=== PATIENT | male | born 1940 | race Caucasian/White ===

== ENCOUNTER 2017-02-03 06:02 | Inpatient (IN) ==
[2017-01-21 12:07] LABS: Basophils # 0.1 10*3/uL (0.0-0.2); Basophils % 0.6 % (0.0-0.8); Eosinophils # 0.4 10*3/uL (0.0-0.87); Eosinophils % 4.8 % (0.00-10.9); Hematocrit 42.7 VOL% (42.0-52.0); Immature Granulocytes % 0.6 %; Immature Granulocytes Absolute 0.05 #; Lymphocytes # 2.2 10*3/uL (1.4-4.0); Lymphocytes % 25.6 % (21.2-54.2); Mean Corpuscular HGB Conc 35.1 GM/DL (32-36); Mean Corpuscular Hemoglobin 33 PG (27-34); Mean Corpuscular Volume 92.8 FL (87-102); Mean Platelet Volume 9.7 FL (9.6-12.0); Monocytes # 0.9 10*3/uL (0.11-0.8); Monocytes % 10.8 % (1.7-12.7); Neutrophils # 4.9 10*3/uL (1.4-7.4); Neutrophils % 57.6 % (38.7-73.9); Platelet Count 205 T/CUMM (130-400); Red Cell Distribution Width 13.5 % (9.3-17.3); White Blood Count 8.5 T/CUMM (4-12)
--- NOTE | 2017-01-21 12:21 | EKG Report ---
Stationary ECG Study [facility] Test Date: 01/21/2017 12:22:40 PM Pat Name: MUKESH FELICIANO Department: Room: Gender: M Surgical Physician Assistant: VAL MAGUIRE : 1940 Requested by: Vernon Abdul Order Number: [id number] Reading MD: DONNA ARTEAGA Intervals [place] Rate: 52 P: 31 MD: 239 QRS: 63 QRSD: 94 T: 39 QT: 404 QTc: 383 Interpretive Statements SINUS BRADYCARDIA WITH PROLONGED MD INTERVAL Electronically Signed On 01-21-17 17:00:10 CDT by DONNA ARTEAGA [email or web address]
[2017-01-21 12:41] LABS: Albumin 4.1 G/DL (3.4-5.0); Bilirubin,Total 0.6 MG/DL (0.2-1.0); Calcium 9.3 MG/DL (8.5-10.1); Osmolality,Calculated 280.4 MOS/KG (273-304); Potassium 5.3 MMOL/L (3.5-5.1); Total Protein 6.8 G/DL (6.4-8.3)
[2017-02-03] MEDS ORDERED: FAMOTIDINE 20 MG TABLET PO ONE (06:14)
[2017-02-03] MEDS ORDERED: LORazepam 1 MG TABLET PO ONE (06:14)
[2017-02-03] MEDS ORDERED: TISSUE ADHESIVE 1 EACH APPLICATOR TOP ONE (06:27)
[2017-02-03] MEDS ORDERED: HEPARIN 5,000 UNIT/1 ML VIAL ONE (06:27)
[2017-02-03] MEDS ORDERED: THROMBIN TOPICAL (RECOMBINANT) 5,000 UNIT VIAL TOP ONE (06:28)
[2017-02-03] MEDS ORDERED: VANCOMYCIN 500 MG VIAL ONE (06:28)
[2017-02-03] MEDS ORDERED: SODIUM CHLORIDE 0.9% 100 ML IV ONE (06:31)
[2017-02-03] MEDS ORDERED: ceFAZolin 1,000 MG VIAL ONE (06:31)
[2017-02-03] MEDS ORDERED: FAMOTIDINE 20 MG TABLET ONE (06:31)
[2017-02-03] MEDS ORDERED: LORazepam 1 MG TABLET ONE (06:31)
[2017-02-03 06:36] LABS: Basophils # 0.1 10*3/uL (0.0-0.2); Basophils % 0.9 % (0.0-0.8); Eosinophils # 0.5 10*3/uL (0.0-0.87); Hematocrit 39.4 VOL% (42.0-52.0); Hemoglobin 14.1 GM/DL (14.0-18.0); Immature Granulocytes % 0.5 %; Immature Granulocytes Absolute 0.04 #; Lymphocytes # 2.1 10*3/uL (1.4-4.0); Lymphocytes % 27.1 % (21.2-54.2); Mean Corpuscular HGB Conc 35.8 GM/DL (32-36); Mean Corpuscular Hemoglobin 33 PG (27-34); Mean Corpuscular Volume 92.7 FL (87-102); Mean Platelet Volume 9.9 FL (9.6-12.0); Monocytes # 0.9 10*3/uL (0.11-0.8); Monocytes % 12.1 % (1.7-12.7); Neutrophils # 4.1 10*3/uL (1.4-7.4); Neutrophils % 52.4 % (38.7-73.9); Platelet Count 187 T/CUMM (130-400); Red Blood Count 4.25 MC/CUMM (3.8-5.5); Red Cell Distribution Width 13.3 % (9.3-17.3); White Blood Count 7.8 T/CUMM (4-12)
[2017-02-03] MEDS: LACTATED RINGERS 1,000 ML IV SCH ×2 (06:40→16:29)
[2017-02-03 06:45] LABS: PT Patient Result 10.4 SECS; Partial Thromboplastin Time 26.3 SECS (0-40)
[2017-02-03] MEDS ORDERED: HEPARIN/NACL 0.9% 2 UNITS/ML 3,000 ML IV ONE (07:34)
--- NOTE | 2017-02-03 07:50 | History and Physical Update ---
History and Physical Update - History and Physical H&P was reviewed, the patient examined and there: are no changes in the patients condition since last H&P was completed.
[2017-02-03 08:48] LABS: Apearance,Urine CLEAR (Clear); Bilirubin,Urine Negative (Negative); Blood, Urine Negative (Negative); Glucose,Urine (UA) Negative (Negative); Ketones,Urine Negative (Negative); Nitrite,Urine Negative (Negative); Protein,Urine Negative; Urine Color Colorless (Yellow); Urine Specific Gravity 1.003 (1.001-1.035); Urine Urobilinogen < 2.0 EU/DL (0.2-1.0); WBC,Urine <1 /HPF (0-6)
--- NOTE | 2017-02-03 09:59 | Post Interventional Procedure ---
Pre-op diagnosis: AAA Post-op diagnosis: same Procedure: EVAR AAA Contrast: Omni 350, 110 cc Flouroscopy: 11.1 min Radiologist: Kraig Correa Anesthesia: GETA Specimens: none sent Estimated blood loss: minimal (100 cc) Complications: none Condition: stable Description/Findings: dopplerable bilat PT pulses after closure Grafts or Implants: see radiology dictation Assessment and Plan - Time spent with patient Time spent with patient: Greater than 30 minutes (1) Abdominal aortic aneurysm Status: Acute Assessment and plan: A: AAA treated with EVAR P: Tx to floor, ambulate when ready, adv diet Current Visit: Yes
[2017-02-03] MEDS ORDERED: ONDANSETRON 4 MG/2 ML VIAL IV PRN ×2 (10:08→10:33)
[2017-02-03] MEDS ORDERED: oxyCODONE/ACETAMINOPHEN 5-325 MG TABLET PO PRN (10:08)
[2017-02-03] MEDS ORDERED: HYDROmorphone 2 MG/1 ML VIAL IV PRN (10:08)
[2017-02-03] MEDS ORDERED: HYDROmorphone 2 MG/1 ML VIAL ONE (10:14)
[2017-02-03] MEDS ORDERED: ONDANSETRON 4 MG/2 ML VIAL ONE (10:14)
[2017-02-03] MEDS: HYDROmorphone 2 MG/1 ML VIAL IV PRN ×2 (10:15→10:23)
[2017-02-03] MEDS ORDERED: BILBERRY FRUIT EXTRACT PO SCH (10:15)
[2017-02-03] MEDS ORDERED: PHENYLEPHRINE DRIP 20 MG/250 ML PREMIX IV ONE (10:39)
[2017-02-03] MEDS ORDERED: PROPOFOL 200 MG/20 ML VIAL IV ONE (10:39)
[2017-02-03] MEDS ORDERED: MIDAZOLAM 2 MG/2 ML VIAL ONE (10:40)
[2017-02-03] MEDS ORDERED: SEVOFLURANE 1 UNIT/15 MINUTE INH ONE (10:40)
[2017-02-03] MEDS ORDERED: fentaNYL 100 MCG/2 ML VIAL ONE (10:40)
[2017-02-03] MEDS ORDERED: NITROGLYCERIN DRIP 50 MG/250 ML BOTTLE IV ONE (10:41)
[2017-02-03] MEDS ORDERED: ROCURONIUM 100 MG/10 ML VIAL IV ONE (10:41)
[2017-02-03] MEDS ORDERED: NEOSTIGMINE 10 MG/10 ML VIAL ONE (10:41)
[2017-02-03] MEDS ORDERED: PROTAMINE SULFATE 50 MG/5 ML VIAL IV ONE (10:41)
[2017-02-03] MEDS ORDERED: LACTATED RINGERS 1,000 ML IV SCH (11:00)
[2017-02-03 13:13] LABS: Hematocrit 37.7 VOL% (42.0-52.0)
[2017-02-03 13:37] LABS: Calcium 7.8 MG/DL (8.5-10.1); Osmolality,Calculated 284.1 MOS/KG (273-304); Potassium 4.6 MMOL/L (3.5-5.1)
--- NOTE | 2017-02-03 16:32 | Event Note ---
Mr. Mortensen is awake alert doing well groins are good with no hematomas feet feel comfortable we will get the [place] out and have regular food store around room KUB and lab in the morning probably home tomorrow he continues this good, postoperative course
[2017-02-03] MEDS ORDERED: LISINOPRIL 10 MG TABLET PO SCH (17:00)
[2017-02-03] MEDS: CARISOPRODOL 350 MG TABLET PO SCH (20:51)
[2017-02-03] MEDS: MULTIVITAMIN (OCUVITE) TABLET PO SCH (20:51)
[2017-02-03] MEDS ORDERED: diphenhydrAMINE CAP 25 MG CAPSULE PO SCH (21:00)
[2017-02-04 05:23] LABS: Basophils # 0.1 10*3/uL (0.0-0.2); Basophils % 0.4 % (0.0-0.8); Eosinophils # 0.3 10*3/uL (0.0-0.87); Eosinophils % 1.5 % (0.00-10.9); Hematocrit 35.2 VOL% (42.0-52.0); Hemoglobin 12.3 GM/DL (14.0-18.0); Immature Granulocytes % 0.5 %; Immature Granulocytes Absolute 0.08 #; Lymphocytes # 1.4 10*3/uL (1.4-4.0); Mean Corpuscular HGB Conc 34.9 GM/DL (32-36); Mean Corpuscular Hemoglobin 32 PG (27-34); Mean Corpuscular Volume 92.6 FL (87-102); Mean Platelet Volume 10.3 FL (9.6-12.0); Monocytes # 1.6 10*3/uL (0.11-0.8); Monocytes % 9.5 % (1.7-12.7); Neutrophils # 13.5 10*3/uL (1.4-7.4); Neutrophils % 80.1 % (38.7-73.9); Platelet Count 144 T/CUMM (130-400); Red Cell Distribution Width 13.2 % (9.3-17.3); White Blood Count 16.8 T/CUMM (4-12)
[2017-02-04 05:36] LABS: Calcium 7.9 MG/DL (8.5-10.1); Osmolality,Calculated 278.7 MOS/KG (273-304); Potassium 4.6 MMOL/L (3.5-5.1)
--- NOTE | 2017-02-04 07:49 | Interventional Radiology Rpt ---
[id number], US guide vascular access, US guide vascular access Indication: Abdominal aortic aneurysm. Indication: Abdominal aortic aneurysm. ENDOVASCULAR REPAIR ABDOMINAL AORTIC ANEURYSM Description: A formal timeout performed. Patient was placed under general endotracheal anesthesia. Heparin 5000 units was administered. The left common femoral artery was evaluated with ultrasound showing moderate plaque deposition posteriorly. Under sonographic guidance, a micropuncture needle was advanced into the left common femoral artery. Captured sonographic image documents needle position. Needle was exchanged over a wire for a sheath. A Perclose device was advanced and partially deployed. A second Perclose device was advanced and partially deployed, with a resultant misfire of the device. A third Perclose device was then advanced and partially deployed, with the knot external to the patient. The knot was then seated gently. A 12 [place]an sheath was then advanced over the wire for hemostasis. The right common femoral artery was studied with ultrasound showing moderate plaque deposition posteriorly. Under sonographic guidance, a micropuncture needle was advanced into the right common femoral artery. A captured sonographic image documents needle position. The needle was exchanged over wire for a sheath. 2 Perclose devices were advanced sequentially, each partially deployed, successfully. After removing the second Perclose device, a 6 [place]an sheath was positioned. From the left groin, flush catheter was advanced into the suprarenal abdominal aorta. From the right groin, over a Pierce wire, a bifurcated Endurant 2 stent graft device was advanced, 32 x 16 x 166 mm. An abdominal aortogram was performed confirming the origin of the lowest accessory right renal artery. After adjusting the position of the primary device, it was deployed, and its position adjusted slightly. A repeat arteriogram was then performed confirming the renal artery ostium. The suprarenal fixation component and contralateral gate was then deployed. The flush catheter was removed over a Glidewire. Glidewire was then withdrawn and, with a Tegtmeyer catheter, the contralateral gate directly accessed. The measuring pigtail catheter was then advanced from the left groin into the lumen of the primary device and spun to confirm intraluminal positioning. ACT of 200 seconds measured. Heparin 2000 units administered. Through the left groin sheath, a retrograde right pelvis arteriogram was performed in an JAP[place]ESE projection to confirm the position of the left hypogastric artery. From the left groin, a 16 x 16 x 124 mm Endurant 2 contralateral device was advanced and deployed from the flow divider marker to the left common iliac artery bifurcation. The ipsilateral limb of the main body was then deployed in its entirety. Through the right groin sheath, a retrograde right pelvic arteriogram was performed to confirm the patency of the ostium of the right hypogastric artery. Sequential angioplasty was then performed from the inflow portion of the main body device, through the flow divider, and to the outflow portion of both iliac limbs. From the right groin, a flush catheter was then advanced into the suprarenal abdominal aorta. An aortogram was performed demonstrating a type II endoleak off of a moderate size right lumbar artery, approximately L2-3, and widely patent stent graft device. Both hypogastric arteries are widely patent as well. Both sheath were left in place. The flush catheter was removed. ACT of 239 seconds was measured. Protamine 25 mg was given. The 2 right groin Perclose devices were then engaged as the 16 [place]an sheath was removed. After removing the sheath, both sutures were secured and locked in place. This achieved almost complete hemostasis requiring only mild right groin pressure. The left first 2 Perclose devices were then engaged as the 12 [place]an sheath was removed. After the sheath was completely out, both sutures were further anchored and the medial suture successfully locked in place. The lateral suture would not locked, and the suture broke near the skin. This suture was easily removed. The third Perclose device in the left groin was then engaged and suture locked in place. After completing the deployment of the first and third left Perclose devices, sutures were cut. There was moderate bleeding at the puncture site which responded to 10 minutes of manual compression without difficulty. Bilateral posterior tibialis pulses were dopplerable at the feet. Patient was awakened and transferred to recovery in stable condition. Medications: GETA. Heparin 7000 units, protamine 25 mg. Estimated blood loss: Minimal, 100 cc. Contrast: Omnipaque 350, 110 cc. Fluoroscopy time: 11.1 minutes. Impression: Endovascular repair abdominal aortic aneurysm as described above. PROCEDURE INTERPRETED AT [facility] DEPARTMENT OF RADIOLOGY Final Report Signed by: Kraig Correa M.D.
--- NOTE | 2017-02-04 08:06 | Anesthesia Post-Op ---
Anesthesia Post OP - Post Ansesthetic Evaluation Patient seen in post op: Yes Resp: within normal limits CV: within normal limits Mental: within normal limits Temp: within normal limits Ybjt-[id number]-Otpsmqkvy: within normal limits Nausea and Vomiting: within normal limits Pain: within normal limits
[2017-02-04] MEDS ORDERED: GREEN TEA LEAF EXTRACT 250 MG PO SCH (09:00)
[2017-02-04] MEDS ORDERED: GLUCOSAMINE SULFATE DIPOT CHLR 1000 MG PO SCH (09:00)
[2017-02-04] MEDS ORDERED: OMEGA 3 ACID ETHYL ESTERS 1 GM CAPSULE PO SCH (09:00)
[2017-02-04] MEDS ORDERED: PANTOPRAZOLE 40 MG TABLET PO SCH (09:00)
[2017-02-04] MEDS ORDERED: ASPIRIN EC 81 MG TABLET PO SCH (09:00)
[2017-02-04] MEDS ORDERED: ATORVASTATIN 40 MG TABLET PO SCH (09:00)
[2017-02-04] MEDS: LACTATED RINGERS 1,000 ML IV SCH (09:33)
--- NOTE | 2017-02-04 09:33 | Event Note ---
Postop day 1 from endovascular repair of abdominal aortic aneurysm. Patient is without complaints, ambulating and tolerating p.o. intake adequately. Anticipate discharge later today. Both feet are warm and dry. Groins are unremarkable. Follow-up CT in one month.
[2017-02-04] MEDS: MULTIVITAMIN (OCUVITE) TABLET PO SCH (09:34)
[2017-02-04] MEDS: CARISOPRODOL 350 MG TABLET PO SCH (09:34)
--- NOTE | 2017-02-04 09:39 | Discharge Summary ---
Hospital Course - Hospital Course Hospital Course: Carlo Mortensen was admitted on 02/03/2017 with moderate abdominal aortic iliac aneurysm. He underwent successful endovascular repair of the aneurysm and is doing well this morning he is up and about with no hematomas of the groins his blood count has dropped a bit with hematocrit now 35 white blood count is elevated but this is very common occurrence after the endovascular repair of the aneurysms. His creatinine is up from 1-1.6 which also is not surprising. He is tolerating a diet ambulatory vital signs look reasonable I will plan for him to go home this afternoon if the creatinine is stabilizing. I am checking this creatinine at 3 PM and will let him be discharged if indeed it is stabilized. Discharge Plan - Discharge Data Disposition: Disch To Home/Self Care Condition at Discharge: Stable Discharge Diet: advance to your usual diet Activity: resume usual activities as tolerated Hygiene: may shower Weight Bearing at Discharge: full weight bearing Driving: not until seen by doctor Contact your physician if you experience:: fever over 101, Redness or swelling - Discharge Medications Continue Carisoprodol [Soma] 350 mg PO BID Multivit-Min/FA/Lutein/Zeaxant [Icaps Mv Tablet] 1 each PO BID Lisinopril [Prinivil] 10 mg PO DAILY W/SUPPER Phoenix-3 Fatty Acids [Phoenix-3 Chew Tab] 100 mg PO DAILY Atorvastatin [Lipitor] 40 mg PO DAILY Bilberry Fruit Extract [Bilberry] 375 mg PO DIRECTED diphenhydrAMINE CAP [Benadryl Cap] 25 mg PO BEDTIME Glucosamine Sulfate Dipot Chlr [Glucosamine] 1,000 mg PO DAILY HYDROcodone/ACETAMIN 7.5-325 [Strang 7.5-325] 1 tablet PO Q6H PRN PRN Reason: Pain Green Tea [place] Extract [Green Tea] 250 mg PO DAILY Omeprazole [Prilosec] 20 mg PO DAILY Aspirin EC Tab 81 mg PO DAILY - Follow Up or Referral Follow Up: Vernon Abdul MD [Physician] - 1 Week - Forms/Instructions Exam - Constitutional Vitals: Period Temp Pulse Resp BP Sys/Martinez Pulse Ox Last 24 Hr 96.5 F-99.7 F 55-79 14-20 101-127/51-85 92-98 Discharge Results Procedures and tests throughout hospitalization: Pending Orders 02/04/17 04:00 XR KUB IN AM 02/04/17 15:34 Creatinine Routine Labs on day of discharge: Labs from last 24 hours 02/04/17 02/04/17 02/03/17 04:41 04:41 12:44 WBC 16.8 H D RBC 3.80 Hgb 12.3 L 13.0 L Hct 35.2 L 37.7 L MCV 92.6 MCH 32 MCHC 34.9 RDW 13.2 Plt Count 144 D MPV 10.3 Neut % (Auto) 80.1 H Lymph % (Auto) 8.0 L [place] % (Auto) 9.5 Eos % (Auto) 1.5 Baso % (Auto) 0.4 Neut # (Auto) 13.5 H Lymph # (Auto) 1.4 [place] # (Auto) 1.6 H Eos # (Auto) 0.3 Baso # (Auto) 0.1 Immature Gran % 0.5 Nucleated RBC % 0.0 Immature Gran # 0.08 Nucleated RBCs # 0.00 Immature Plt Fraction 0.0 Sodium 138 Potassium 4.6 Chloride 106 Carbon Dioxide 23 Anion Gap 13.6 BUN 15 Creatinine 1.60 H GFR Calculation 50 BUN/Creatinine Ratio 9.00 Glucose 160 H Calculated Osmolality 278.7 Calcium 7.9 L 02/03/17 12:44 WBC RBC Hgb Hct MCV MCH MCHC RDW Plt Count MPV Neut % (Auto) Lymph % (Auto) [place] % (Auto) Eos % (Auto) Baso % (Auto) Neut # (Auto) Lymph # (Auto) [place] # (Auto) Eos # (Auto) Baso # (Auto) Immature Gran % Nucleated RBC % Immature Gran # Nucleated RBCs # Immature Plt Fraction Sodium 142 Potassium 4.6 Chloride 111 H Carbon Dioxide 29 Anion Gap 6.6 BUN 12 Creatinine 1.00 GFR Calculation 88 BUN/Creatinine Ratio 12.00 Glucose 128 H Calculated Osmolality 284.1 Calcium 7.8 L DS: Provider Date of admission: 02/03/17 06:02 Primary care physician: Vito Couch, Attending physician on admission: Vernon Abdul MD Discharging clinician: Vernon Abdul MD
--- NOTE | 2017-02-04 09:46 | XRay Report ---
XR KUB Indication: Postop endograft for AAA. 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 No small bowel dilatation. Normal amount of stool and gas is shown the colon. There is some retained IV contrast in the bladder. Impression: Status post EVAR AAA. Retained contrast in the urinary bladder. PROCEDURE INTERPRETED AT [facility] DEPARTMENT OF RADIOLOGY Final Report Signed by: Kraig Correa M.D.
[2017-02-04 16:44] VITALS: BP 113/55
== END 2017-02-04 16:42 | disposition home or self-care (01) | DRG 269 ==
LOC: N.SDSINP 06:02 → N.4E 12:27
PROVIDERS: ADMIT Surgery; ATTEND Surgery
PROC: IRERAAA (2017-02-03 07:50)

== ENCOUNTER 2017-12-04 09:36 | Inpatient (IN) ==
[2017-12-10 07:01] VITALS: BP 118/68
== END 2017-12-10 10:13 | DRG 493 ==
LOC: N.OR 09:36 → N.SDSINP 09:38 → N.3E 13:51
PROVIDERS: ADMIT Orthopaedic Surgery; ATTEND Orthopaedic Surgery

== ENCOUNTER 2018-05-03 05:40 | Inpatient (IN) ==
[2018-05-03] MEDS ORDERED: ceFAZolin 2,000 MG in PREMIX 1 EACH IV ONE (06:30)
[2018-05-03] MEDS: LACTATED RINGERS 1,000 ML IV SCH ×2 (07:35→10:16)
[2018-05-03] MEDS ORDERED: PROMETHAZINE 25 MG/1 ML VIAL IM PRN (09:17)
[2018-05-03] MEDS ORDERED: ONDANSETRON 4 MG/2 ML VIAL IV PRN (09:17)
[2018-05-03] MEDS ORDERED: BISACODYL 10 MG SUPP RECTAL PRN (09:17)
[2018-05-03] MEDS ORDERED: LACTULOSE 20 GM/30 ML UDCUP PO PRN (09:17)
[2018-05-03] MEDS ORDERED: MAGNESIUM HYDROXIDE SUSP 30 ML UDCUP PO PRN (09:17)
[2018-05-03] MEDS ORDERED: diphenhydrAMINE CAP 25 MG CAPSULE PO PRN (09:21)
[2018-05-03] MEDS ORDERED: SEVOFLURANE 1 UNIT/15 MINUTE INH ONE (11:19)
[2018-05-03] MEDS ORDERED: PROPOFOL 200 MG/20 ML VIAL IV ONE (11:19)
[2018-05-03] MEDS ORDERED: LACTATED RINGERS 1,000 ML IV ONE (11:20)
[2018-05-03] MEDS ORDERED: ONDANSETRON 4 MG/2 ML VIAL ONE (11:20)
[2018-05-03] MEDS ORDERED: PHENYLEPHRINE 1 MG/10 ML SYRINGE IV ONE (11:20)
[2018-05-03] MEDS ORDERED: fentaNYL 100 MCG/2 ML VIAL ONE (11:20)
[2018-05-03] MEDS ORDERED: ePHEDrine 50 MG/ML AMP ONE (11:20)
[2018-05-03] MEDS: MORPHINE 4 MG/1 ML VIAL IV PRN ×3 (12:25→22:43)
[2018-05-03] MEDS: ceFAZolin 1,000 MG in SYRINGE 1 EACH IV SCH (16:50)
[2018-05-03] MEDS: GLIMEPIRIDE 4 MG TABLET PO SCH (16:50)
[2018-05-03] MEDS ORDERED: GLUCAGON 1 MG VIAL IM PRN (16:59)
[2018-05-03] MEDS ORDERED: DEXTROSE 50% 25 GM/50 ML VIAL IV PRN (16:59)
[2018-05-03] MEDS ORDERED: LISINOPRIL 10 MG TABLET PO SCH (17:00)
[2018-05-03 18:05] LABS: Basophils % 0.3 % (0.0-0.8); Eosinophils # 0.1 10*3/uL (0.0-0.87); Eosinophils % 0.8 % (0.00-10.9); Hematocrit 33.5 VOL% (42.0-52.0); Hemoglobin 11.3 GM/DL (14.0-18.0); Immature Granulocytes % 0.5 %; Immature Granulocytes Absolute 0.06 #; Lymphocytes # 1.4 10*3/uL (1.4-4.0); Lymphocytes % 11.1 % (21.2-54.2); Mean Corpuscular HGB Conc 33.7 GM/DL (32-36); Mean Corpuscular Hemoglobin 31 PG (27-34); Monocytes % 8.1 % (1.7-12.7); Neutrophils # 10.1 10*3/uL (1.4-7.4); Neutrophils % 79.2 % (38.7-73.9); Platelet Count 190 T/CUMM (130-400); Red Blood Count 3.68 MC/CUMM (3.8-5.5); Red Cell Distribution Width 13.6 % (9.3-17.3); White Blood Count 12.7 T/CUMM (4-12)
[2018-05-03 19:01] LABS: Albumin 3.2 G/DL (3.4-5.0); Bilirubin,Total 0.4 MG/DL (0.2-1.0); Calcium 8.3 MG/DL (8.5-10.1); Osmolality,Calculated 275.8 MOS/KG (273-304); Potassium 4.1 MMOL/L (3.5-5.1); Thyroid Stimulating Hormone 4.2 uIU/ml (0.358-3.74); Total Protein 6.2 G/DL (6.4-8.3)
[2018-05-03] MEDS ORDERED: DONEPEZIL 10 MG TABLET PO SCH (21:00)
[2018-05-03] MEDS ORDERED: ATORVASTATIN 40 MG TABLET PO SCH (21:00)
[2018-05-03] MEDS ORDERED: ASPIRIN EC 81 MG TABLET PO SCH (21:00)
[2018-05-03] MEDS ORDERED: GLUCOSAMINE 500 MG TABLET PO SCH (21:00)
[2018-05-03] MEDS: SULFAMETHOX/TRIMETHOPRIM 800-160 MG TABLET PO SCH (21:13)
[2018-05-03] MEDS: INSULIN REGULAR 100 UNIT/ML SUBCUT SCH (21:13)
[2018-05-04] MEDS: MORPHINE 4 MG/1 ML VIAL IV PRN (02:57)
[2018-05-04] MEDS: ceFAZolin 1,000 MG in SYRINGE 1 EACH IV SCH (04:33)
[2018-05-04 05:23] LABS: Basophils % 0.2 % (0.0-0.8); Eosinophils # 0.1 10*3/uL (0.0-0.87); Eosinophils % 1.3 % (0.00-10.9); Hematocrit 31.6 VOL% (42.0-52.0); Hemoglobin 10.6 GM/DL (14.0-18.0); Immature Granulocytes % 0.3 %; Immature Granulocytes Absolute 0.03 #; Lymphocytes # 1.1 10*3/uL (1.4-4.0); Lymphocytes % 11.6 % (21.2-54.2); Mean Corpuscular HGB Conc 33.5 GM/DL (32-36); Mean Corpuscular Hemoglobin 31 PG (27-34); Mean Corpuscular Volume 92.7 FL (87-102); Monocytes # 1.2 10*3/uL (0.11-0.8); Neutrophils # 6.6 10*3/uL (1.4-7.4); Neutrophils % 73.6 % (38.7-73.9); Platelet Count 161 T/CUMM (130-400); Red Blood Count 3.41 MC/CUMM (3.8-5.5); Red Cell Distribution Width 13.6 % (9.3-17.3)
[2018-05-04 05:42] LABS: Calcium 8.3 MG/DL (8.5-10.1); Osmolality,Calculated 272.8 MOS/KG (273-304); Potassium 4.7 MMOL/L (3.5-5.1)
[2018-05-04 07:32] VITALS: BP 110/66
[2018-05-04] MEDS ORDERED: metFORMIN 500 MG TABLET PO SCH (08:00)
[2018-05-04 08:40] LABS: Free T4 (Free Thyroxine) 1.14 NG/DL (0.76-1.46)
[2018-05-04] MEDS ORDERED: ALOE VERA PO SCH (09:00)
[2018-05-04] MEDS: SULFAMETHOX/TRIMETHOPRIM 800-160 MG TABLET PO SCH (09:29)
[2018-05-04] MEDS: GLIMEPIRIDE 4 MG TABLET PO SCH (09:29)
[2018-05-04] MEDS: INSULIN REGULAR 100 UNIT/ML SUBCUT SCH (09:30)
== END 2018-05-04 12:20 | disposition home health service (06) | DRG 494 ==
LOC: N.SDSINP 05:40 → N.OR 05:40 → N.3E 09:18
PROVIDERS: ADMIT Orthopaedic Surgery; ATTEND Orthopaedic Surgery

== ENCOUNTER 2019-11-28 15:58 | Inpatient (IN) ==
[2019-11-28] MEDS ORDERED: SODIUM CHLORIDE 0.9% 1,000 ML IV STA (16:35)
[2019-11-28 16:56] LABS: Basophils % 0.2 % (0.0-0.8); Hematocrit 44.3 VOL% (42.0-52.0); Hemoglobin 15.2 GM/DL (14.0-18.0); Immature Granulocytes % 0.4 %; Immature Granulocytes Absolute 0.02 #; Lymphocytes # 1.1 10*3/uL (1.4-4.0); Lymphocytes % 19.3 % (21.2-54.2); Mean Corpuscular HGB Conc 34.3 GM/DL (32-36); Mean Corpuscular Volume 92.1 FL (87-102); Mean Platelet Volume 9.6 FL (9.6-12.0); Monocytes % 16.5 % (1.7-12.7); Neutrophils % 63.6 % (38.7-73.9); Platelet Count 140 T/CUMM (130-400); Red Blood Count 4.81 MC/CUMM (3.8-5.5); Red Cell Distribution Width 12.7 % (9.3-17.3); White Blood Count 5.5 T/CUMM (4-12)
[2019-11-28 17:03] LABS: PT Patient Result 10.8 SECS (9.8-11.9)
[2019-11-28 17:22] LABS: Albumin 2.8 G/DL (3.4-5.0); Bilirubin,Total 0.6 MG/DL (0.2-1.0); Calcium 7.9 MG/DL (8.5-10.1); Ferritin 484.4 ng/ml (26-388); Osmolality,Calculated 262.1 MOS/KG (273-304); Total Protein 6.4 G/DL (6.4-8.3)
[2019-11-28] MEDS ORDERED: LEVOFLOXACIN INJ 500 MG in PREMIX 1 EACH IV STA (18:00)
[2019-11-28 19:01] LABS: Lymphocytes 26 % (20-55); Macrocytosis Slight; Segmented Neutrophils 65 % (50-85); Total Cells Counted 100
[2019-11-28 19:02] LABS: Hypochromasia Slight; Platelet Estimate Decreased
[2019-11-28 19:03] LABS: Reactive Lymphocytes Few
[2019-11-28] MEDS ORDERED: GLUCAGON 1 MG VIAL IM PRN ×2 (19:48)
[2019-11-28] MEDS ORDERED: ONDANSETRON 4 MG/2 ML VIAL IV PRN (19:48)
[2019-11-28] MEDS ORDERED: DEXTROSE 50% 25 GM/50 ML VIAL IV PRN ×2 (19:48)
[2019-11-28] MEDS: SODIUM CHLORIDE 0.9% 1,000 ML IV SCH (20:00)
[2019-11-28] MEDS: INSULIN LISPRO 100 UNIT/ML SUBCUT SCH (21:45)
[2019-11-28] MEDS: ENOXAPARIN 40 MG/0.4 ML SYRINGE SUBCUT SCH (21:45)
[2019-11-28] MEDS: ATORVASTATIN 40 MG TABLET PO SCH (21:45)
[2019-11-28] MEDS: ASPIRIN EC 81 MG TABLET PO SCH (21:45)
[2019-11-28] MEDS: DONEPEZIL 10 MG TABLET PO SCH (21:45)
[2019-11-29] MEDS: SODIUM CHLORIDE 0.9% 1,000 ML IV SCH (03:00)
[2019-11-29 05:42] LABS: Basophils % 0.1 % (0.0-0.8); Hematocrit 44.2 VOL% (42.0-52.0); Hemoglobin 15.1 GM/DL (14.0-18.0); Immature Granulocytes % 0.3 %; Immature Granulocytes Absolute 0.02 #; Lymphocytes # 1.1 10*3/uL (1.4-4.0); Lymphocytes % 16.2 % (21.2-54.2); Mean Corpuscular HGB Conc 34.2 GM/DL (32-36); Mean Corpuscular Volume 93.1 FL (87-102); Mean Platelet Volume 9.5 FL (9.6-12.0); Neutrophils % 69.4 % (38.7-73.9); Platelet Count 129 T/CUMM (130-400); Red Blood Count 4.75 MC/CUMM (3.8-5.5); Red Cell Distribution Width 12.6 % (9.3-17.3); White Blood Count 6.7 T/CUMM (4-12)
[2019-11-29 06:28] LABS: Osmolality,Calculated 262.9 MOS/KG (273-304); Risk Ratio 3.66; Thyroid Stimulating Hormone 2.04 uIU/ml (0.358-3.74)
[2019-11-29 06:29] LABS: Microcytosis Slight; Ovalocytes Slight; Platelet Estimate Adequate
[2019-11-29] MEDS: PANTOPRAZOLE 40 MG TABLET PO SCH (08:08)
[2019-11-29] MEDS: INSULIN LISPRO 100 UNIT/ML SUBCUT SCH ×4 (08:08→20:04)
[2019-11-29] MEDS: lisinopriL 10 MG TABLET PO SCH (17:05)
[2019-11-29] MEDS: ENOXAPARIN 40 MG/0.4 ML SYRINGE SUBCUT SCH (20:51)
[2019-11-29] MEDS: ATORVASTATIN 40 MG TABLET PO SCH (20:51)
[2019-11-29] MEDS: DONEPEZIL 10 MG TABLET PO SCH (20:51)
[2019-11-29] MEDS: ASPIRIN EC 81 MG TABLET PO SCH (20:51)
[2019-11-29] MEDS: ACETAMINOPHEN 325 MG TABLET PO PRN (20:52)
[2019-11-30] MEDS: ACETAMINOPHEN 325 MG TABLET PO PRN ×2 (00:18→20:44)
[2019-11-30 05:38] LABS: Apearance,Urine CLEAR (Clear); Bacteria,Urine Occasional /HPF (Few); Bilirubin,Urine Negative (Negative); Blood, Urine Small mg/dL (Negative); Glucose,Urine (UA) Negative (Negative); Ketones,Urine Negative (Negative); Mucus,Urine Occasional /LPF (Occasional); Nitrite,Urine Negative (Negative); Protein,Urine 100 MG/DL; RBC,Urine <1 /HPF (0-4); Squamous Epithelial Cell,Urine Occasional /HPF (0-10); Urine Color Yellow (Yellow); Urine Specific Gravity 1.016 (1.001-1.035); Urine Urobilinogen < 2.0 EU/DL (0.2-1.0); WBC,Urine 1 /HPF (0-6)
[2019-11-30 05:39] LABS: Calcium 7.8 MG/DL (8.5-10.1); Osmolality,Calculated 271.4 MOS/KG (273-304)
[2019-11-30] MEDS: INSULIN LISPRO 100 UNIT/ML SUBCUT SCH ×4 (08:03→20:54)
[2019-11-30] MEDS: PANTOPRAZOLE 40 MG TABLET PO SCH (09:22)
[2019-11-30] MEDS: CLORAZEPATE 3.75 MG TABLET PO PRN ×2 (11:37→20:45)
[2019-11-30] MEDS: lisinopriL 10 MG TABLET PO SCH (16:18)
[2019-11-30] MEDS: ASPIRIN EC 81 MG TABLET PO SCH (20:53)
[2019-11-30] MEDS: DONEPEZIL 10 MG TABLET PO SCH (20:53)
[2019-11-30] MEDS: ATORVASTATIN 40 MG TABLET PO SCH (20:54)
[2019-11-30] MEDS: ENOXAPARIN 40 MG/0.4 ML SYRINGE SUBCUT SCH (20:54)
[2019-12-01] MEDS: INSULIN LISPRO 100 UNIT/ML SUBCUT SCH ×4 (08:28→22:00)
[2019-12-01] MEDS: PANTOPRAZOLE 40 MG TABLET PO SCH (09:04)
[2019-12-01] MEDS ORDERED: HALOPERIDOL 1 MG TABLET PO ONE (10:30)
[2019-12-01] MEDS ORDERED: SODIUM CHLORIDE 0.9% 1,000 ML IV PRN (13:06)
[2019-12-01] MEDS: lisinopriL 10 MG TABLET PO SCH (17:41)
[2019-12-01] MEDS: ATORVASTATIN 40 MG TABLET PO SCH (22:00)
[2019-12-01] MEDS: ENOXAPARIN 40 MG/0.4 ML SYRINGE SUBCUT SCH (22:00)
[2019-12-01] MEDS: QUEtiapine 25 MG TABLET PO SCH (22:00)
[2019-12-01] MEDS: ASPIRIN EC 81 MG TABLET PO SCH (22:00)
[2019-12-01] MEDS: DONEPEZIL 10 MG TABLET PO SCH (22:00)
[2019-12-02 06:28] LABS: Basophils % 0.2 % (0.0-0.8); Eosinophils % 0.4 % (0.00-10.9); Hematocrit 39.6 VOL% (42.0-52.0); Immature Granulocytes % 0.4 %; Immature Granulocytes Absolute 0.02 #; Lymphocytes # 0.9 10*3/uL (1.4-4.0); Lymphocytes % 19.7 % (21.2-54.2); Mean Corpuscular HGB Conc 35.4 GM/DL (32-36); Mean Corpuscular Volume 88.6 FL (87-102); Mean Platelet Volume 9.6 FL (9.6-12.0); Monocytes % 10.4 % (1.7-12.7); Neutrophils % 68.9 % (38.7-73.9); Platelet Count 133 T/CUMM (130-400); Red Blood Count 4.47 MC/CUMM (3.8-5.5); Red Cell Distribution Width 12.4 % (9.3-17.3); White Blood Count 4.7 T/CUMM (4-12)
[2019-12-02 06:56] LABS: Osmolality,Calculated 268.4 MOS/KG (273-304)
[2019-12-02 07:15] LABS: Platelet Estimate Adequate; Polychromasia Slight
[2019-12-02] MEDS: PANTOPRAZOLE 40 MG TABLET PO SCH (08:29)
[2019-12-02] MEDS: INSULIN LISPRO 100 UNIT/ML SUBCUT SCH ×4 (08:29→20:53)
[2019-12-02] MEDS ORDERED: CLORAZEPATE 7.5 MG TABLET PO PRN (10:30)
[2019-12-02] MEDS: lisinopriL 10 MG TABLET PO SCH (17:35)
[2019-12-02] MEDS: MEGESTROL 400 MG/10 ML UDCUP PO SCH (17:35)
[2019-12-02] MEDS: ATORVASTATIN 40 MG TABLET PO SCH (20:42)
[2019-12-02] MEDS: DONEPEZIL 10 MG TABLET PO SCH (20:42)
[2019-12-02] MEDS: ASPIRIN EC 81 MG TABLET PO SCH (20:42)
[2019-12-02] MEDS: QUEtiapine 25 MG TABLET PO SCH (20:42)
[2019-12-02] MEDS: ENOXAPARIN 40 MG/0.4 ML SYRINGE SUBCUT SCH (20:42)
[2019-12-03] MEDS: PANTOPRAZOLE 40 MG TABLET PO SCH (08:35)
[2019-12-03] MEDS: MEGESTROL 400 MG/10 ML UDCUP PO SCH ×2 (08:35→17:08)
[2019-12-03] MEDS: INSULIN LISPRO 100 UNIT/ML SUBCUT SCH ×4 (08:46→20:31)
[2019-12-03] MEDS: NYSTATIN 500,000 UNIT/5 ML UDCUP SWISH/SWAL SCH ×4 (11:45→20:31)
[2019-12-03] MEDS: lisinopriL 10 MG TABLET PO SCH (17:08)
[2019-12-03] MEDS: ENOXAPARIN 40 MG/0.4 ML SYRINGE SUBCUT SCH (20:31)
[2019-12-03] MEDS: ATORVASTATIN 40 MG TABLET PO SCH (20:31)
[2019-12-03] MEDS: QUEtiapine 25 MG TABLET PO SCH (20:31)
[2019-12-03] MEDS: DONEPEZIL 10 MG TABLET PO SCH (20:31)
[2019-12-03] MEDS: ASPIRIN EC 81 MG TABLET PO SCH (20:33)
[2019-12-04] MEDS: INSULIN LISPRO 100 UNIT/ML SUBCUT SCH ×4 (08:27→20:36)
[2019-12-04] MEDS: PANTOPRAZOLE 40 MG TABLET PO SCH (08:36)
[2019-12-04] MEDS: MEGESTROL 400 MG/10 ML UDCUP PO SCH ×2 (08:36→16:12)
[2019-12-04] MEDS: NYSTATIN 500,000 UNIT/5 ML UDCUP SWISH/SWAL SCH ×5 (08:36→20:37)
[2019-12-04] MEDS: lisinopriL 10 MG TABLET PO SCH (16:13)
[2019-12-04] MEDS: ENOXAPARIN 40 MG/0.4 ML SYRINGE SUBCUT SCH (20:36)
[2019-12-04] MEDS: QUEtiapine 25 MG TABLET PO SCH (20:36)
[2019-12-04] MEDS: DONEPEZIL 10 MG TABLET PO SCH (20:36)
[2019-12-04] MEDS: ASPIRIN EC 81 MG TABLET PO SCH (20:36)
[2019-12-04] MEDS: ATORVASTATIN 40 MG TABLET PO SCH (20:36)
[2019-12-05 06:00] LABS: Calcium 8.1 MG/DL (8.5-10.1); Osmolality,Calculated 277.8 MOS/KG (273-304)
[2019-12-05] MEDS: NYSTATIN 500,000 UNIT/5 ML UDCUP SWISH/SWAL SCH ×2 (08:17→12:25)
[2019-12-05] MEDS: INSULIN LISPRO 100 UNIT/ML SUBCUT SCH ×2 (08:17→12:23)
[2019-12-05] MEDS: MEGESTROL 400 MG/10 ML UDCUP PO SCH (08:17)
[2019-12-05] MEDS: PANTOPRAZOLE 40 MG TABLET PO SCH (08:17)
[2019-12-05 11:56] VITALS: BP 123/64
== END 2019-12-05 14:09 | disposition home health service (06) | DRG 177 ==
LOC: EDUNIT# → EDBD → N.EDINP 15:58 → N.ED 15:58 → N.2E 11-29 02:00 → SUATTDRO 11-30 13:27
PROVIDERS: ADMIT Internal Medicine; ATTEND Internal Medicine